=== PATIENT | male | born 1985 | race Caucasian/White ===

== ENCOUNTER 2017-05-28 08:35 | Emergency (ER) | payer OTHER ==
--- NOTE | 2017-05-28 08:56 | ER Document Report ---
ED Eye Complaint - General Chief Complaint: Eye Problem Stated Complaint: EYE PAIN/BLURRY VISION Time Seen by Provider: 05/28/17 08:56 Mode of Arrival: Ambulatory Information source: Patient Notes: Pt is a 32 year old male who presents to the ER today for redness, burning to his left eye [place] the beach [place]. He states it started to hurt while on the beach, but he doesn't know if he got anything in it or not. He tried to flush the eye out but never saw a foreign body come from the eye and the eye is still irritated with some yellow drainage. Was not matted shut this morning. TRAVEL OUTSIDE OF THE [place] IN LAST 30 DAYS: No - Related Data Allergies/Adverse Reactions: No Known Allergies Allergy (Verified 05/28/17 08:56) Home Medications: Current Home Medications Cetirizine HCl [Zyrtec 10 mg Tablet] 1 tab PO DAILY 05/28/17 [History] Naproxen [Naprosyn 250 mg Tablet] 250 mg PO DAILY PRN 05/28/17 [History] Past Medical History - General Information source: Patient - Social History Smoking Status: Never Smoker Family History: Reviewed & Not Pertinent Patient has suicidal ideation: No Patient has homicidal ideation: No Renal/ Medical History: Denies: Hx Peritoneal Dialysis Review of Systems - Review of Systems Constitutional: No symptoms reported EENT: See HPI Cardiovascular: No symptoms reported Respiratory: No symptoms reported Gastrointestinal: No symptoms reported Genitourinary: No symptoms reported Male Genitourinary: No symptoms reported Musculoskeletal: No symptoms reported Skin: No symptoms reported Hematologic/Lymphatic: No symptoms reported Neurological/Psychological: No symptoms reported Physical Exam - Vital signs Vitals: Temp Pulse Resp BP Pulse Ox 98.5 F 80 16 145/85 H 100 05/28/17 08:42 05/28/17 08:42 05/28/17 08:42 05/28/17 08:42 05/28/17 08:42 - Notes Notes: PHYSICAL EXAMINATION: GENERAL: Well-appearing and in no acute distress. HEAD: Atraumatic, normocephalic. EYES: left conunctiva erythematous, no drainage, flourescein stain reveals small foreign body, no ulcer or abrasion, Pupils equal round and reactive to light, extraocular movements intact, sclera anicteric NECK: Normal range of motion, supple without lymphadenopathy LUNGS: CTAB and equal. No wheezes rales or rhonchi. HEART: Regular rate and rhythm without murmurs EXTREMITIES: Normal range of motion, no pitting edema. No cyanosis. NEUROLOGICAL: Cranial nerves grossly intact. Normal sensory/motor exams. PSYCH: Normal mood, normal affect. SKIN: Warm, Dry, normal turgor, no rashes or lesions noted Course - Re-evaluation Re-evalutation: 05/28/17 10:02 - Vital Signs Vital signs: Temp Pulse Resp BP Pulse Ox 98.5 F 75 16 142/78 H 100 05/28/17 10:18 05/28/17 10:18 05/28/17 10:18 05/28/17 10:18 05/28/17 10:18 Procedures - Eye Procedure Left Time completed: 10:00 Eye Irrigated w/ Saline (ccs): 30 Foreign body removal: Left Alcaine Drops Administered: Yes Fluorescein applied: Left Antibiotic Oinment/Drps Admin: Left eye Slit lamp used: No Notes: 05/28/17 10:02 flourescein stain reveals small foreign body that was not present after flushing multiple times, no ulcer or abrasion 05/28/17 10:02 Discharge - Discharge Clinical Impression: Foreign body, eye Qualifiers: Encounter type: initial encounter Laterality: left Qualified Code(s): T15.92XA - Foreign body on external eye, part unspecified, left eye, initial encounter Condition: Stable Disposition: HOME, SELF-CARE Additional Instructions: Return immediately for any new or worsening symptoms. Follow up with eye doctor, call tomorrow to make followup appointment.
[2017-05-28] MEDS ORDERED: TETRACAINE HCL 0.5% OPH SOLN 2 ML OS ONE (08:57)
[2017-05-28] MEDS ORDERED: POLYMYXIN B SULFATE/TMP OPH SOLN 10 ML OS ONE (09:58)
[2017-05-28 10:24] VITALS: BP 142/78
== END 2017-05-28 10:20 | disposition home or self-care (01) ==
LOC: ER 08:35
DX: T15.92XA Foreign body on external eye, part unspecified, left eye, initial encounter (principal); X58.XXXA Exposure to other specified factors, initial encounter
CPT/HCPCS: 99283; J3490